=== PATIENT | female | born 1955 | race Caucasian/White ===

== ENCOUNTER → 2016-10-25 | Outpatient (CLI) | payer MEDICAID | LOC: CIMAGING 13:54 | DX: Z12.31 Encounter for screening mammogram for malignant neoplasm of breast (principal) | CPT/HCPCS: G0202 ==

== ENCOUNTER 2016-11-06 11:28 | Emergency (ER) | payer MEDICAID ==
[2016-11-06 11:54] VITALS: BP 149/100; PULSE 75; RESP 20; TEMP 98.1; O2SAT 94
--- NOTE | 2016-11-06 12:47 | UCPHY ---
H & P Time Seen by Provider: 11/06/16 12:35 Patient Type: Established HPI/ROS: 60-year-old female presents complaining of cough, runny nose, sore throat for several days. Review of systems As per HPI Positive URI symptoms General no fever no chills no weakness HEENT no eye pain no eye discharge. No eye redness, positive sore throat Respiratory positive cough, no shortness of breath Cardiac no chest pain, no peripheral edema GI no abdominal pain, no diarrhea, no constipation, no nausea, no vomiting no flank pain, no hematuria, no dysuria Musculoskeletal no myalgias, no joint pain Heme no easy bruising, no easy bleeding Endo no polyuria, no polydipsia Skin no rashes, no pruritus Neuro no syncope, no dizziness, no headaches Psych is no suicidal ideation, no homicidal ideation Past Medical/Surgical History: Asthma, hypothyroidism, depression, hyperlipidemia, chronic pain syndrome Social History: Denies excessive alcohol or drug use Smoking Status: Never smoked Physical Exam: 60-year-old female Alert and oriented nontoxic appearance, no acute distress afebrile Atraumatic normocephalic Extraocular muscles intact, anicteric Nares mild yellowish discharge Oropharynx mild erythema no tonsillar swelling no exudate no uvular deviation, tolerating own secretions Neck supple no lymphadenopathy Lungs clear to auscultation bilaterally Heart regular rate and rhythm Abdomen normoactive bowel sounds soft nontender Extremities no cyanosis clubbing or edema Skin no rash Constitutional: Initial Vital Signs Temperature (C) 36.7 C 11/06/16 11:50 Heart Rate 75 11/06/16 11:50 Respiratory Rate 20 11/06/16 11:50 Blood Pressure 149/100 H 11/06/16 11:50 O2 Sat (%) 94 11/06/16 11:50 O2 Delivery Mode Room Air Allergies/Adverse Reactions: Sulfa (Sulfonamide Antibiotics) Allergy (Severe, Verified 11/06/16 11:54) adhesive Allergy (Verified 11/06/16 11:54) clonazepam [From Klonopin] Allergy (Verified 11/06/16 11:54) latex Allergy (Verified 11/06/16 11:54) pregabalin [From Lyrica] Allergy (Verified 11/06/16 11:54) Home Medications: Medication Instructions Recorded DULoxetine [Cymbalta] mg PO HS 02/01/11 Levothyroxine [Synthroid] mcg PO DAILY 02/01/11 Montelukast Sodium [Singulair] 10 mg PO DAILY@1800 02/01/11 buPROPion SR [Wellbutrin] 150 mg PO BID 02/01/11 morphINE IR [Morphine] 15 mg PO 02/01/11 oxyCODONE CR [oxyCONTIN] 10 mg PO BID 02/01/11 Albuterol [Proventil Inhaler HFA 2 puffs IH QID #1 mdi 08/17/12 (*)] Aspirin 81mg (OTC) 01/08/14 Atorvastatin Calcium 01/08/14 B Complex with Vitamin C 01/08/14 Benzonatate [Tessalon Pearles (RX)] 100 mg PO TID PRN #20 cap 01/08/14 Iron 01/08/14 Labetalol HCl 01/08/14 Losartan-Hctz 100-25 mg Tab 01/08/14 Oxygen 01/08/14 Potassium 01/08/14 Vitamin D3 (OTC) 01/08/14 Xyzal 01/08/14 busPIRone 01/08/14 predniSONE 40 mg PO DAILY #6 tab 01/08/14 AZITHROMYCIN [Z-PACK] 250 mg PO DAILY #6 tab 11/06/16 Medical Decision Making - Diagnostics Imaging: Chest x-ray negative for infiltrate ED Course/Re-evaluation: Patient seen and evaluated for cough fevers chills cold symptoms, sore throat Differential diagnosis considered Viral pharyngitis, URI, bronchitis, pneumonia Impression Bronchitis Plan Z-Neeraj Follow-up primary care physician Departure - Departure Disposition: Home, Routine, Self-Care Clinical Impression: Bronchitis Condition: Good Instructions: Acute Bronchitis (ED) Referrals: Stephanie Monsivais MD [Primary Care Provider] - As per Instructions Prescriptions: AZITHROMYCIN [Z-PACK] 250 mg PO DAILY #6 tab - PQRS PQRS Measurement: na
== END 2016-11-06 12:54 | disposition home or self-care (01) ==
LOC: CED 11:28
DX: J40 Bronchitis, not specified as acute or chronic (principal)
CPT/HCPCS: 99214-PO; G0463-PO

== ENCOUNTER 2017-01-19 08:44 | Emergency (ER) | payer MEDICAID ==
[2017-01-19 08:57] VITALS: BP 126/93; PULSE 100; RESP 20; TEMP 98.8; O2SAT 91
[2017-01-19] MEDS ORDERED: IPRATROPIUM/ALBUTEROL 3 ML DEYVIAL IH ONE (09:27)
[2017-01-19] MEDS ORDERED: predniSONE 20 MG TAB PO ONE (09:27)
--- NOTE | 2017-01-19 09:31 | EDPHY ---
H & P Stated Complaint: cough since last night, chills, sweats, migraine Time Seen by Provider: 01/19/17 09:24 HPI/ROS: CHIEF COMPLAINT: Cough HISTORY OF PRESENT ILLNESS: The patient is a 61-year-old female with a history of asthma comes to the emergency department complaining of a nonproductive cough as well as fevers and chills last night and increased wheezing. She wears oxygen at home chronically and has not needed to turn it up. The symptoms began yesterday. She also has a headache today. Sore throat. No ear pain. No GI symptoms. No chest pain. REVIEW OF SYSTEMS: Constitutional: denies: chills, fever, recent illness, recent injury EENTM: denies: blurred vision, double vision, nose congestion Respiratory: See HPI Cardiac: denies: chest pain, irregular heart rate, lightheadedness, palpitations Gastrointestinal/Abdominal: denies: abdominal pain, diarrhea, nausea, vomiting, blood streaked stools Genitourinary: denies: dysuria, frequency, hematuria, pain Musculoskeletal: denies: joint pain, muscle pain Skin: denies: lesions, rash, jaundice, bruising Neurological: denies: headache, numbness, paresthesia, tingling, dizziness, weakness Hematologic/Lymphatic: denies: blood clots, easy bleeding, easy bruising Immunologic/allergic: denies: HIV/AIDS, transplant EXAM: GENERAL: Well-appearing, well-nourished and in no acute distress. HEAD: Atraumatic, normocephalic. EYES: Pupils equal round and reactive to light, extraocular movements intact, sclera anicteric, conjunctiva are normal. ENT: TMs normal, nares patent, oropharynx clear without exudates. Moist mucous membranes. NECK: Normal range of motion, supple without lymphadenopathy or JVD. LUNGS: Bilateral rhonchi, no wheezing HEART: Regular rate and rhythm without murmurs, rubs or gallops. ABDOMEN: Soft, nontender, normoactive bowel sounds. No guarding, no rebound. No masses appreciated. BACK: No CVA tenderness, no spinal tenderness, step-offs or deformities EXTREMITIES: Normal range of motion, no pitting or edema. No clubbing or cyanosis. NEUROLOGICAL: Cranial nerves II through XII grossly intact. Normal speech, normal gait. 5/5 strength, normal movement in all extremities, normal sensation PSYCH: Normal mood, normal affect. SKIN: Warm, dry, normal turgor, no visible rashes or lesions. Source: Patient Exam Limitations: No limitations - Personal History Current Tetanus/Diphtheria Vaccine: Yes - Medical/Surgical History Hx Asthma: Yes Hx Chronic Respiratory Disease: No Hx Diabetes: No Hx Cardiac Disease: No Hx Renal Disease: No Hx Cirrhosis: No Hx Alcoholism: No Hx HIV/AIDS: No Hx Splenectomy or Spleen Trauma: No Other PMH: HYPOTHYROISIM. CHORNIC PAIN. DEPRESSION. HYPOXIA. heria, shoulder , achilles, tubal, tonsils - Family History Significant Family History: No pertinent family hx - Social History Smoking Status: Never smoked Alcohol Use: Sober Drug Use: None Constitutional: Initial Vital Signs Temperature (C) 37.1 C 01/19/17 08:53 Heart Rate 100 01/19/17 08:53 Respiratory Rate 20 01/19/17 08:53 Blood Pressure 126/93 H 01/19/17 08:53 O2 Sat (%) 91 L 01/19/17 08:53 O2 Delivery Mode Room Air Allergies/Adverse Reactions: Sulfa (Sulfonamide Antibiotics) Allergy (Severe, Verified 01/19/17 08:57) adhesive Allergy (Verified 01/19/17 08:57) clonazepam [From Klonopin] Allergy (Verified 01/19/17 08:57) latex Allergy (Verified 01/19/17 08:57) pregabalin [From Lyrica] Allergy (Verified 01/19/17 08:57) Home Medications: Medication Instructions Recorded DULoxetine [Cymbalta] mg PO HS 02/01/11 Levothyroxine [Synthroid] mcg PO DAILY 02/01/11 Montelukast Sodium [Singulair] 10 mg PO DAILY@1800 02/01/11 buPROPion SR [Wellbutrin] 150 mg PO BID 02/01/11 morphINE IR [Morphine] 15 mg PO 02/01/11 oxyCODONE CR [oxyCONTIN] 10 mg PO BID 02/01/11 Albuterol [Proventil Inhaler HFA 2 puffs IH QID #1 mdi 08/17/12 (*)] Aspirin 81mg (OTC) 01/08/14 Atorvastatin Calcium 01/08/14 B Complex with Vitamin C 01/08/14 Iron 01/08/14 Labetalol HCl 01/08/14 Oxygen 01/08/14 Potassium 01/08/14 Vitamin D3 (OTC) 01/08/14 Xyzal 01/08/14 busPIRone 01/08/14 AZITHROMYCIN [Z-PACK] 250 mg PO DAILY #6 tab 01/19/17 Spiriva Inhaler (RX) 01/19/17 predniSONE 60 mg PO DAILY #15 tab 01/19/17 Medical Decision Making - Diagnostics Imaging Results: Imaging Impressions Chest X-Ray 01/19/17 09:27 Impression: Suspect early left lower lobe pneumonia. Findings and recommendations discussed with Emergency Department physician, Dr. Umberto Umanzor at 1107 hours on January 19, 2017. Final report concurs with initial preliminary interpretation. Imaging: I viewed and interpreted images myself ED Course/Re-evaluation: Patient has bronchitis on x-ray. She is requesting antibiotics. I will start her on azithromycin. She does feel better after a DuoNeb. She has albuterol at home as well as an oxygen concentrator. She is eager to go home. I will also put her course of steroids. She agrees with this plan and declines further workup or testing at this time. Differential Diagnosis: Partial list of the Differential diagnosis considered include but were not limited to; bronchitis, pneumonia, COPD exacerbation and although unlikely based on the history and physical exam, I also considered pneumothorax, acute coronary disease, PE. I discussed these differential diagnoses and the plan with the patient as well as the usual and expected course. The patient understands that the diagnosis is provisional and that in medicine we are not always correct and that further workup is often warranted. Usual and customary warnings were given. All of the patient's questions were answered. The patient was instructed to return to the emergency department should the symptoms at all worsen or return, otherwise to followup with the physician as we discussed. - Data Points Medications Given: Discontinued Medications Albuterol/Ipratropium (Duoneb) 3 ml IH EDNOW ONE Stop: 01/19/17 09:28 Last Admin: 01/19/17 09:40 Dose: 3 ml Prednisone (Prednisone) 60 mg PO EDNOW ONE Stop: 01/19/17 09:28 Last Admin: 01/19/17 09:40 Dose: 60 mg Departure - Departure Disposition: Home, Routine, Self-Care Clinical Impression: Chronic obstructive pulmonary disease with acute exacerbation Acute bronchitis Qualifiers: Bronchitis organism: unspecified organism Qualified Code(s): J20.9 - Acute bronchitis, unspecified Condition: Fair Instructions: Acute Bronchitis (ED), COPD (Chronic Obstructive Pulmonary Disease) (ED) Referrals: TODD PATEL,. [Primary Care Provider] - As per Instructions Prescriptions: AZITHROMYCIN [Z-PACK] 250 mg PO DAILY #6 tab predniSONE 60 mg PO DAILY #15 tab
== END 2017-01-19 10:45 | disposition home or self-care (01) ==
LOC: CED 08:44
DX: J44.1 Chronic obstructive pulmonary disease with (acute) exacerbation (principal); Z79.82 Long term (current) use of aspirin; Z91.040 Latex allergy status
CPT/HCPCS: 71020-PO

== ENCOUNTER → 2017-09-06 | Outpatient (CLI) | payer OTHER, MEDICAID | LOC: CIMAGING 11:39 | PROVIDERS: ATTEND Family Medicine | DX: R10.2 Pelvic and perineal pain (principal) | CPT/HCPCS: 72190-PO ==

== ENCOUNTER 2018-08-04 10:25 | Emergency (ER) | payer MEDICAID ==
[2018-08-04] MEDS ORDERED: IPRATROPIUM/ALBUTEROL 3 ML DEYVIAL IH ONE (11:26)
[2018-08-04] MEDS ORDERED: AZITHROMYCIN 250 MG TAB PO ONE (11:27)
[2018-08-04] MEDS ORDERED: DEXAMETHASONE 4 MG TAB PO ONE (12:50)
--- NOTE | 2018-08-04 12:52 | EDPHY ---
H & P Stated Complaint: PT. fever,bodyaches,wfcxw-jwzjebdbty-axqgb-yellow x1 week,sob Time Seen by Provider: 08/04/18 10:55 HPI/ROS: This patient presents with one-week history of cough occasionally productive of yellow sputum. She has history of a prior tracheostomy for prolonged hospitalization that included pneumonia and an esophageal injury is a complication of a neck surgery. Since that time she has tended to have chronic laryngeal problems including chronic dysphonia with no significant change with this illness. She reports low-grade subjective fevers associated with her cough. She came in by private vehicle for evaluation of the symptoms. ROS: Constitutional: Low-grade fevers. Otherwise negative HEENT: Mild nasal congestion. No sinus pain Pulmonary: No pleuritic pain. She does have some bronchial pain with deep breaths. No hemoptysis. No respiratory distress Cardiovascular: No leg swelling or calf pain. No other chest pain GI: No nausea vomiting. No abdominal pain Integumentary: Diaphoresis or rash 10 point review of symptoms is performed and otherwise negative with exception of pertinent positives and negatives listed in HPI and ROS Source: Patient Exam Limitations: No limitations - Medical/Surgical History Hx Asthma: Yes Hx Chronic Respiratory Disease: No Hx Diabetes: No Hx Cardiac Disease: No Hx Renal Disease: No Hx Cirrhosis: No Hx Alcoholism: No Hx HIV/AIDS: No Hx Splenectomy or Spleen Trauma: No Other PMH: HYPOTHYROISIM. CHORNIC PAIN. DEPRESSION. HYPOXIA. heria, shoulder , achilles, tubal, tonsils - Family History Significant Family History: No pertinent family hx - Social History Smoking Status: Never smoked Alcohol Use: None Drug Use: None - Physical Exam Exam: General Appearance: Alert, no distress. Eyes: Pupils equal and round no pallor or injection. ENT, Mouth: Mucous membranes moist. Patient has mild dysphonia. She has anterior scarring consistent with prior tracheostomy. No significant stridor. Respiratory: she has mild rhonchi and mild wheezing bilaterally. No rales. Cardiovascular: Regular rate and rhythm. Gastrointestinal: Abdomen is soft and nontender, no masses, bowel sounds normal. Neurological GCS 15 Skin: Warm and dry, no rashes. Musculoskeletal: Neck is supple nontender. Extremities are symmetrical, full range of motion. Psychiatric: Patient is oriented X 3, there is no agitation. DIFFERENTIAL DIAGNOSIS: After history and physical exam differential diagnosis was considered for bronchitis, pneumonia, URI with cough, laryngitis Constitutional: Initial Vital Signs Temperature (C) 36.5 C 08/04/18 10:45 Heart Rate 91 08/04/18 10:45 Respiratory Rate 18 08/04/18 10:45 Blood Pressure 130/97 H 08/04/18 10:45 O2 Sat (%) 90 L 08/04/18 10:45 O2 Delivery Mode Room Air Allergies/Adverse Reactions: Sulfa (Sulfonamide Antibiotics) Allergy (Severe, Verified 08/04/18 10:40) adhesive Allergy (Verified 08/04/18 10:40) clonazepam [From Klonopin] Allergy (Verified 08/04/18 10:40) latex Allergy (Verified 08/04/18 10:40) pregabalin [From Lyrica] Allergy (Verified 08/04/18 10:40) Home Medications: Medication Instructions Recorded DULoxetine [Cymbalta] mg PO HS 02/01/11 Levothyroxine [Synthroid] mcg PO DAILY 02/01/11 buPROPion SR [Wellbutrin] 150 mg PO BID 02/01/11 morphINE IR [Morphine] 15 mg PO 02/01/11 Albuterol [Proventil Inhaler HFA 2 puffs IH QID #1 mdi 08/17/12 (*)] Aspirin 81mg (OTC) 01/08/14 Atorvastatin Calcium 01/08/14 B Complex with Vitamin C 01/08/14 Iron 01/08/14 Labetalol HCl 01/08/14 Oxygen 2.5 l 01/08/14 Potassium 01/08/14 Vitamin D3 (OTC) 01/08/14 Xyzal 01/08/14 busPIRone 01/08/14 Spiriva Inhaler (RX) 01/19/17 Albuterol Hfa Anes Only [Proair 2 puffs IH Q4 PRN #1 mdi 08/04/18 Hfa Icu (*)] Azithromycin [Zithromax] 250 mg PO DAILY #4 tab 08/04/18 Medical Decision Making - Diagnostics Imaging Results: Two view chest x-ray: I do not appreciate any focal infiltrates by my interpretation. ED Course/Re-evaluation: DuoNeb with increased aeration decreased wheeze decreased cough frequency. Zithromax p.o. Decadron 10 mg p.o. Discussion: Patient presents with findings consistent with bronchitis. Given her associated laryngitis in history of upper airway trauma she may have a croup -like presentation in addition. For this reason she is also given the Decadron. Will cover her with Zithromax antibiotic. She understands need to return should she develop worsening symptoms. She also uses albuterol. - Data Points Medications Given: Discontinued Medications Albuterol/Ipratropium (Duoneb) 3 ml IH EDNOW ONE Stop: 08/04/18 11:27 Last Admin: 08/04/18 11:50 Dose: 3 ml Azithromycin (Zithromax) 500 mg PO EDNOW ONE PRN Reason: Protocol Stop: 08/04/18 11:28 Last Admin: 08/04/18 11:50 Dose: 500 mg Dexamethasone (Decadron) 10 mg PO EDNOW ONE Stop: 08/04/18 12:51 Last Admin: 08/04/18 13:15 Dose: 10 mg Point of Care Test Results: CBC CBC Collection Date 08/04/18 CBC Collection Time 11:50 WBC 10 RBC 4.9 HGB 14.4 HCT 43.7 PLT 255 Neut # 7.6 Neut 76.6 LYMPH # 1.6 LYMPH 15.6 Other WBC # 0.8 Other WBC 7.8 MCV 89.2 Chemistry 08/04/18 12:43 POC Sodium 145 mEq/L mEq/L (135-145) POC Potassium 3.5 mEq/L mEq/L (3.3-5.0) POC Chloride 101.0 mEq/L mEq/L (97-110) POC Total CO2 25 mEq/L mEq/L (22-31) POC BUN 8 mg/dL mg/dL (7-23) POC Creatinine 0.8 mg/dL mg/dL (0.6-1.0) POC Glucose 93 mg/dL mg/dL (70-100) POC Calcium 9.6 mg/dL mg/dL (8.5-10.4) Departure - Departure Disposition: Home, Routine, Self-Care Clinical Impression: Acute bronchitis Condition: Good Instructions: Albuterol (By breathing), Azithromycin (By mouth), Acute Bronchitis (ED) Additional Instructions: Diagnosis: Acute bronchitis Plan: Humidifier Albuterol inhaler with spacer for cough, wheeze or shortness of breath Zithromax antibiotic-next dose tomorrow He also received a dose of Decadron steroid while here in the emergency department Return for any significant worsening of symptoms despite the treatment plan. Follow up with primary care physician for any symptoms that persist beyond the next 5-7 days despite treatment plan. Referrals: Stephanie Monsivais MD [Primary Care Provider] - As per Instructions Prescriptions: Albuterol Hfa Anes Only [Proair Hfa Icu (*)] 2 puffs IH Q4 PRN #1 mdi PRN Reason: Wheezing Azithromycin [Zithromax] 250 mg PO DAILY #4 tab
[2018-08-04 13:20] VITALS: BP 117/68
== END 2018-08-04 13:17 | disposition home or self-care (01) ==
LOC: CED 10:25
DX: J40 Bronchitis, not specified as acute or chronic (principal); Z93.0 Tracheostomy status
CPT/HCPCS: 71046-PO; 80048-PO

== ENCOUNTER → 2018-11-28 | Outpatient (CLI) | payer MEDICAID | LOC: CIMAGING 10:51 | PROVIDERS: ATTEND Family Medicine | DX: Z12.31 Encounter for screening mammogram for malignant neoplasm of breast (principal) ==

== ENCOUNTER → 2018-12-05 | Outpatient (CLI) | payer MEDICAID | LOC: FIMAGING 11:59 | PROVIDERS: ATTEND Family Medicine | DX: M81.0 Age-related osteoporosis without current pathological fracture (principal); M54.9 Dorsalgia, unspecified; R73.9 Hyperglycemia, unspecified; E03.9 Hypothyroidism, unspecified; Z78.0 Asymptomatic menopausal state; Z82.62 Family history of osteoporosis ==

== ENCOUNTER → 2018-12-30 | Outpatient (CLI) | payer MEDICAID | LOC: EMCIMAGING 08:02 | PROVIDERS: ATTEND Family Medicine | DX: N63.21 Unspecified lump in the left breast, upper outer quadrant (principal) ==